=== PATIENT | male | born 1970 | race Caucasian/White ===

== ENCOUNTER → 2016-09-02 | Day surgery (SDC) | payer OTHER ==
[~2016-09-02] VITALS: Ht 177.8 cm; Wt 116.0 kg
[~2016-09-02] MED LIST: GABA-112 PO; GLC/500 PO; LISI-729 PO; PROPOFOL IV EMULSION 10 MG/ML 20 ML VIAL IV ONE
[2016-09-02 07:00] VITALS: BP 137/74; PULSE 16; TEMP 36.6; O2SAT 94; Ht 177.8 cm; Wt 116.0 kg
--- NOTE | 2016-09-02 07:19 | History & Physical Bridge Note ---
H&P Re-Evaluation Bridge Note: I have examined the patient, reviewed the History & Physical and in the interval since the performance of the History & Physical I have noted the following changes of clinical significance: No changes noted. Informed consent was obtained. Will proceed with FRANCISCO as planned.
== END | disposition home or self-care (01) ==
LOC: C.CATH 05:55
PROVIDERS: ATTEND Specialist
DX: R93.1 Abnormal findings on diagnostic imaging of heart and coronary circulation (principal); E11.9 Type 2 diabetes mellitus without complications; F17.210 Nicotine dependence, cigarettes, uncomplicated; Z82.49 Family history of ischemic heart disease and other diseases of the circulatory system; Z53.9 Procedure and treatment not carried out, unspecified reason